=== PATIENT | male | born 1990 | race African-American/Black ===

== ENCOUNTER 2019-01-31 10:17 | Emergency (ER) | payer OTHER ==
[2019-01-31] MEDS ORDERED: Ondansetron 4 MG Tab.DIS PO ONE (10:56)
[2019-01-31] MEDS ORDERED: Alum Hydrox/Mag Hydrox/Simeth 30 ML, Lidocaine 2% 15 ML PO ONE ×2 (10:56)
[2019-01-31] MEDS ORDERED: Dicyclomine 10 MG Cap PO ONE (11:04)
--- NOTE | 2019-01-31 11:07 | EDM.PDOC ---
<Niru Dove - Last Filed: 01/31/19 10:58> ED HPI GENERAL MEDICAL PROBLEM - General Chief Complaint: Abdominal Pain Stated Complaint: STOMACH PAIN Time Seen by Provider: 01/31/19 10:35 Source of Information: Reports: Patient History Limitations: Reports: No Limitations - History of Present Illness INITIAL COMMENTS - FREE TEXT/NARRATIVE: Patient is a pleasant 28 year old male that comes into the ED with complaints of generalized abdominal pain that radiates to his midchest and has been present for the past two weeks. He states the pain was intermittent at first but has been constant for the last few days. He describes the pain as a burning sensation with shooting pains. Rates the abdominal pain as a 10/10 and chest pain as a 2/10. He states he has felt nauseous the last two weeks with no episodes of emesis. Reports a decreased appetite for the last two weeks, but has been able to take in fluids fairly well. Yesterday the pain became severe. He states he had a regular bowel movement in the morning and then he took a liquid, from what I can ascertain it was Milk of Mag, and this caused him to have soft/diarrhea like stools that were black in color. He states he had 7-8 bowel movements after taking the medication. Last night he states he had chills and when he took his temperature it was 104. Has not had a fever since and has not had a bowel movement today. He states he has never experienced pain like this before. Denies shortness of breath, vomiting, and lightheadedness. He added that he was on vacation in [place] until two weeks ago. It was after he returned that the pain started. He did not feel sick or have the pain while he was on vacation and denies eating anything different or out of the ordinary. Onset: Gradual Onset Date: 01/17/19 Duration: Week(s): (Two) Location: Reports: Abdomen (Generalized) Quality: Reports: Burning (with shooting pains) Severity: Mild Worsens with: Reports: Eating Associated Symptoms: Reports: Chest Pain, Loss of Appetite, Nausea/Vomiting Abdomen Pain Score (Numeric/FACES): 10 - Related Data Allergies Allergy/AdvReac Type Severity Reaction Status Date / Time No Known Allergies Allergy Verified 01/31/19 10:33 Home Meds: Home Meds Ondansetron [Zofran ODT] 4 mg PO Q8H PRN #28 tab.dis 01/31/19 [Rx] Past Medical History - Past Health History Medical/Surgical History: Denies Medical/Surgical History Social & Family History - Family History Neurological: Reports: Alzheimers Disease - Tobacco Use Smoking Status *Q: Current Every Day Smoker Years of Tobacco use: 10 Packs/Tins Daily: 0.5 - Caffeine Use Caffeine Use: Reports: None - Recreational Drug Use Recreational Drug Use: Yes Recreational Drug Type: Reports: Marijuana/Hashish ED ROS GENERAL - Review of Systems Review Of Systems: See Below Constitutional: Reports: Fever, Chills, Decreased Appetite. Denies: Weakness, Fatigue Respiratory: Reports: No Symptoms, Shortness of Breath Cardiovascular: Reports: Chest Pain. Denies: Lightheadedness GI/Abdominal: Reports: Abdominal Pain (Generalized), Diarrhea (started yesterday ), Decreased Appetite, Nausea. Denies: Vomiting : Reports: No Symptoms Skin: Reports: No Symptoms Neurological: Denies: Dizziness, Headache Psychiatric: Reports: No Symptoms ED EXAM, GI/ABD - Physical Exam Exam: See Below Exam Limited By: No Limitations General Appearance: Alert, No Apparent Distress Respiratory/Chest: No Respiratory Distress, Lungs Clear, Normal Breath Sounds, Chest Non-Tender Cardiovascular: Regular Rate, Rhythm, No Edema, No Murmur GI/Abdominal Exam: Normal Bowel Sounds, Soft, No Organomegaly, No Distention, Tender (RLQ, LUQ, and LLQ) Back Exam: Normal Inspection, Full Range of Motion. No: CVA Tenderness (L), CVA Tenderness (R) Neurological: Alert, Oriented, Normal Cognition Psychiatric: Normal Affect, Normal Mood Skin Exam: Warm, Dry, Intact, Normal Color Course - Vital Signs Last Recorded V/S: Last Vital Signs Temp 97.9 F 01/31/19 10:27 Pulse 65 01/31/19 10:27 Resp 16 01/31/19 10:27 BP 140/87 01/31/19 10:27 Pulse Ox 100 01/31/19 10:27 - Orders/Labs/Meds Labs: Laboratory Tests 01/31/19 01/31/19 Range/Units 11:14 11:14 WBC 8.14 (4.23-9.07) K/mm3 RBC 5.81 (4.63-6.08) M/mm3 Hgb 16.3 (13.7-17.5) gm/L Hct 49.2 (40.1-51.0) % MCV 84.7 (79.0-92.2) fl MCH 28.1 (25.7-32.2) pg MCHC 33.1 (32.2-35.5) g/dl RDW Std Deviation 43.1 (35.1-43.9) fL Plt Count 222 (163-337) K/mm3 MPV 12.6 H (9.4-12.3) fl Neutrophils % (Manual) 64 H (40-60) % Band Neutrophils % 0 (0-10) % Lymphocytes % (Manual) 30 (20-40) % Atypical Lymphs % 0 % Monocytes % (Manual) 4 (2-10) % Eosinophils % (Manual) 2 (0.8-7.0) % Basophils % (Manual) 0 L (0.2-1.2) Platelet Estimate Adequate Plt Morphology Comment Normal Ovalocytes 2+ moderate RBC Morph Comment Not Reportable Sodium 139 (136-145) mEq/L Potassium 4.0 (3.5-5.1) mEq/L Chloride 104 (98-107) mEq/L Carbon Dioxide 28 (21-32) mEq/L Anion Gap 11.0 (5-15) BUN 15 (7-18) mg/dL Creatinine 1.4 H (0.7-1.3) mg/dL Est Cr Clr Drug Dosing 85.45 mL/min Estimated GFR (MDRD) 60 (>60) mL/min BUN/Creatinine Ratio 10.7 L (14-18) Glucose 80 (74-106) mg/dL Calcium 9.2 (8.5-10.1) mg/dL Total Bilirubin 0.9 (0.2-1.0) mg/dL AST 21 (15-37) U/L ALT 31 (16-63) U/L Alkaline Phosphatase 72 (46-116) U/L Total Protein 7.3 (6.4-8.2) g/dl Albumin 4.0 (3.4-5.0) g/dl Globulin 3.3 gm/dL Albumin/Globulin Ratio 1.2 (1-2) Meds: Medications Discontinued Medications Generic Name Dose Route Start Last Admin Trade Name Freq PRN Reason Stop Dose Admin Al Hydroxide/Mg Hydroxide 30 0 ml 06/27/19 10:56 01/31/19 11:04 ml/ Lidocaine HCl 15 ml PO 01/31/19 10:57 45 ml ONETIME ONE Administration Dicyclomine HCl 20 mg 01/31/19 11:04 01/31/19 11:20 Bentyl PO 01/31/19 11:05 20 mg ONETIME ONE Administration Ondansetron HCl 4 mg 01/31/19 10:56 01/31/19 11:04 Zofran Odt PO 01/31/19 10:57 4 mg ONETIME ONE Administration Departure - Departure Disposition: Home, Self-Care 01 Clinical Impression: Nausea, Gastroenteritis - Discharge Information Prescriptions: Ondansetron [Zofran ODT] 4 mg PO Q8H PRN #28 tab.dis PRN Reason: Nausea Instructions: Viral Gastroenteritis, Adult, [id number] Referrals: PCP,None [Primary Care Provider] - Forms: ED Department Discharge, ED Return to Work/School Form Additional Instructions: You have been evaluated in the ED for nausea/diarrhea, and generalized abdominal pain. It is likely that this is caused from a viral gastroenteritis. Over the next 24-48 hours please try to limit diet to clear liquids and advance as tolerate to a bland diet to alleviate symptoms of nausea/diarrhea. Please use the Zofran every 8 hours as needed for nausea. Recommend that you start a medication like omeprazole (Prilosec), this is a proton pump inhibitor, and will reduce the amount of acid in your stomach. Please take 20mg daily. Recommend that you establish care with a primary care provider, our clinic number [phone], any family practice provider will be able to provide with the services. This is so that you can get your health can be managed long-term , and recommend that you have an EGD done to evaluate for the possibility of an ulcer. Please return to the ED if your symptoms should change or worsen. <Brianna Link - Last Filed: 01/31/19 12:16> ED HPI GENERAL MEDICAL PROBLEM - History of Present Illness INITIAL COMMENTS - FREE TEXT/NARRATIVE: I have read and reviewed the student's HPI and examined the patient and agree with Lambert Dove NP student. Course - Orders/Labs/Meds Labs: Laboratory Tests 01/31/19 01/31/19 Range/Units 11:14 11:14 WBC 8.14 (4.23-9.07) K/mm3 RBC 5.81 (4.63-6.08) M/mm3 Hgb 16.3 (13.7-17.5) gm/L Hct 49.2 (40.1-51.0) % MCV 84.7 (79.0-92.2) fl MCH 28.1 (25.7-32.2) pg MCHC 33.1 (32.2-35.5) g/dl RDW Std Deviation 43.1 (35.1-43.9) fL Plt Count 222 (163-337) K/mm3 MPV 12.6 H (9.4-12.3) fl Neutrophils % (Manual) 64 H (40-60) % Band Neutrophils % 0 (0-10) % Lymphocytes % (Manual) 30 (20-40) % Atypical Lymphs % 0 % Monocytes % (Manual) 4 (2-10) % Eosinophils % (Manual) 2 (0.8-7.0) % Basophils % (Manual) 0 L (0.2-1.2) Platelet Estimate Adequate Plt Morphology Comment Normal Ovalocytes 2+ moderate RBC Morph Comment Not Reportable Sodium 139 (136-145) mEq/L Potassium 4.0 (3.5-5.1) mEq/L Chloride 104 (98-107) mEq/L Carbon Dioxide 28 (21-32) mEq/L Anion Gap 11.0 (5-15) BUN 15 (7-18) mg/dL Creatinine 1.4 H (0.7-1.3) mg/dL Est Cr Clr Drug Dosing 85.45 mL/min Estimated GFR (MDRD) 60 (>60) mL/min BUN/Creatinine Ratio 10.7 L (14-18) Glucose 80 (74-106) mg/dL Calcium 9.2 (8.5-10.1) mg/dL Total Bilirubin 0.9 (0.2-1.0) mg/dL AST 21 (15-37) U/L ALT 31 (16-63) U/L Alkaline Phosphatase 72 (46-116) U/L Total Protein 7.3 (6.4-8.2) g/dl Albumin 4.0 (3.4-5.0) g/dl Globulin 3.3 gm/dL Albumin/Globulin Ratio 1.2 (1-2) - Re-Assessments/Exams Free Text/Narrative Re-Assessment/Exam: 01/31/19 11:15 Patient presents to the ED for the evaluation of all over abdominal pain. There is really no one focal region of his pain at this time, it is very nondescript. Have ordered a GI cocktail, dicyclomine, CBC, CMP for further evaluation. Will obtain stool sample if he is able to provide one. 01/31/19 11:55 Patient's labs are done, and are within normal limits. His creatinine is mildly elevated at 1.4, we do not have old labs to compare with. We'll recommend that he set up care with a primary care provider to manage his long- term health. The RN states that he did get some relief with the GI cocktail. Will recommend that he start a PPI like omeprazole daily, and will send home with script for zofran ODT at this time. Departure - Departure Time of Disposition: 11:58 Condition: Fair - Discharge Information *PRESCRIPTION DRUG MONITORING PROGRAM REVIEWED*: No *COPY OF PRESCRIPTION DRUG MONITORING REPORT IN PATIENT EMMA: No
== END 2019-01-31 12:40 | disposition home or self-care (01) ==
LOC: EDBD 10:17 → JD.ED 10:17
DX: K52.9 Noninfective gastroenteritis and colitis, unspecified (principal); F17.210 Nicotine dependence, cigarettes, uncomplicated
CPT/HCPCS: 36415; 80053; 85007; 85027; 99284; A9270; 99283